=== PATIENT | male | born 1965 | race Caucasian/White ===

== ENCOUNTER 2023-01-30 09:15 | Emergency (ER) | payer OTHER, SELFPAY ==
[2023-01-30] VITALS (21 sets, daily range): BP systolic 114–142; BP diastolic 85–98; PULSE 72–92; RESP 14–27; TEMP 36.6–36.7; O2SAT 95–98
--- NOTE | ~2023-01-30 | XR_ITS ---
XR chest 1V portable DATE: 01/30/2023 11:45 INDICATION: Cough. Covid-positive. TECHNIQUE: Portable AP chest on 01/30/2023 at 1140 hours COMPARISON: None FINDINGS: Normal heart size. Aortic arch calcification. No hilar or mediastinal enlargement. No pulmo nary infiltrate or consolidation, pleural effusion or pulmonary vascular congestion or pneumothorax. IMPRESSION: No active cardiopulmonary disease Aortic atherosclerosis Reviewed, dictated and finalized at location B.
--- NOTE | 2023-01-30 09:48 | PC.NURSE ---
Addendum entered by Aguila Dominguez RN 01/30/23 09:52: States on Monday he was dealing with diarrhea which has resolved. Pt has also had two episodes of emesis when he attributes to a coughing a fit. Last emesis was last night after eating some chicken. Pt states he has not had much of an appetite. Pt is c/o nausea. Original Note: Denies SOB. States he is COVID positive. States his symptoms have been starting since Saturday 01/27 Pt has been c/o body aches, headache, fever, and a cough. Pt states he called his PCP and was directed to come to the ER due to his symptoms. Pt states he last took tylenol at 0300 early this morning to break the fever.
[2023-01-30 10:19] LABS: Basophils Percent Auto 0.4 % (0.2-1.2); Eosinophils Absolute Auto 0.1 K/mm3 (0-0.3); Eosinophils Percent Auto 2.5 % (0-4.4); Hematocrit 48.6 % (42.0-52.0); Hemoglobin 16.1 g/dL (14.0-18.0); Immature Granulocyte Absolute 0.01 K/mm3 (0.00-0.031); Immature Granulocyte Percent A 0.2 % (0-0.5); Lymphocytes Absolute Auto 0.72 K/mm3 (0.9-3.2); Lymphocytes Percent Auto 12.9 % (18.3-44.2); Mean Corpuscular HGB Conc 33.1 g/dl (32-36); Mean Corpuscular Hemoglobin 30.1 pg (26-34); Mean Corpuscular Volume 90.8 fl (80-100); Monocytes Absolute Auto 0.6 K/mm3 (0.1-0.6); Monocytes Percent Auto 11.5 % (2.6-8.5); Neutrophils Absolute Auto 4.1 K/mm3 (1.3-6.7); Neutrophils Percent Auto 72.5 % (45.5-73.1); Platelet Count Result 234 k/mm3 (150-375); Red Blood Count 5.35 M/mm3 (4.6-6.20); Red Cell Distribution Width 12.8 % (11.5-14.5); White Blood Count 5.6 K/mm3 (4.5-10.0)
[2023-01-30 10:22] LABS: Influenza A QL RT-PCR Negative (Negative); Influenza B QL RT-PCR Negative (Negative); RSV RNA, RT-PCR Negative (Negative); SARS-CoV-2 RNA PCR Positive
[2023-01-30 10:24] LABS: Alanine Aminotransferase 51 U/L (6-50); Albumin Level 4.6 g/dL (3.5-5.1); Alkaline Phosphatase 77 U/L (38-126); Anion Gap 9 mmol/L (8-16); Aspartate Amino Transferase 60 U/L (17-59); Bilirubin,Total 0.8 mg/dL (0.2-1.3); Blood Urea Nitrogen 15 mg/dL (9-20); Calcium 9.1 mg/dL (8.4-10.2); Carbon Dioxide 30 mmol/L (22-30); Chloride 97 mmol/L (98-107); Estimated Glomerular Filt Rate > 60; Glucose 156 mg/dL (65-110); Lipase 61 U/L (23-300); Potassium 3.7 mmol/L (3.4-5.0); Sodium 136 mmol/L (137-145)
[2023-01-30 10:46] LABS: Appearance Urine Cloudy (Clear); Bacteria Urine None Seen /hpf; Bilirubin Urine 1+ (Negative); Blood Urine Negative (Negative); Color Urine Dark Yellow (Yellow); Glucose Urine UA Negative (Negative); Hyaline Casts Urine Present /lpf; Ketones Urine 1+ mg/dL (Negative); Leukocyte Esterase Ur Negative LEU/UL (Negative); Mucus Urine Present /lpf; Nitrate Urine Negative (Negative); Non Pathogenic Casts >20; Protein Urine 2+ mg/dL (Negative); RBC Urine 0-2 /hpf (0-2); Specific Grav Ur 1.031 (1.001-1.035); Squamous Epithelial Cell Urine Few /hpf (Few); WBC Urine 0-5 /hpf; pH Urine 5.5 (5.0-9.0)
[2023-01-30 10:54] LABS: Add Urine Microscopic? YES
--- NOTE | 2023-01-30 11:31 | ED.HA ---
HPI - Headache General Chief Complaint: Headache Stated Complaint: covid Time Seen by Provider: 01/30/23 11:04 Source: patient Mode of arrival: ambulatory Limitations: no limitations History of Present Illness HPI Narrative: Patient is a 57-year-old male who presents to the ED with multiple complaints. Patient reports he began feeling unwell on Monday night with cough, congestion, headache, body aches, nausea, vomiting, diarrhea, lower abdominal pain, fevers, chills, sore throat. He took an at home COVID test which was positive. He states he did not trust the test and went to [facility] where he also tested positive again. Patient states he is not feeling any better and wants Paxlovid. Patient is vaccinated but not boosted. He has been taking Sudafed, NyQuil, Tylenol at home. Denies chest pain, difficulty breathing, pleuritic pain, hemoptysis. Related Data Allergies Allergy/AdvReac Type Severity Reaction Status Date / Time No Known Allergies Allergy Unknown Verified 01/06/12 06:55 Review of Systems Review of Systems: CONSTITUTIONAL: See HPI. ENT: See HPI. CARDIOVASCULAR: Denies chest pain, palpitations, or edema. RESPIRATORY: See HPI. GASTROINTESTINAL: See HPI. GENITOURINARY: Denies dysuria or hematuria. SKIN: Denies rash or itching. MUSCULOSKELETAL: See HPI. NEUROLOGIC: See HPI. All systems reviewed & are unremarkable except as noted in HPI and below PMFSH Past Medical History Medical History (Updated 01/30/23 @ 12:26 by Michelle Whittington PA-C) GERD (gastroesophageal reflux disease) HLD (hyperlipidemia) HTN (hypertension) Surgical History Surgical History (Updated 01/30/23 @ 12:17 by Michelle Whittington PA-C) No pertinent past surgical history Social History Social History (Updated 01/30/23 @ 12:17 by Michelle Whittington PA-C) Smoking status: Never smoker Exam Narrative: GENERAL: Well appearing, well-nourished, non-toxic, in no acute distress. HEAD: Normocephalic, atraumatic. NECK: Supple. No adenopathy, no masses. RESPIRATORY: Airway patent, respirations nonlabored. Clear to auscultation bilaterally, no rales, rhonchi, wheezing. No focal lung sounds. No pleuritic pain reported. CARDIOVASCULAR: Regular rate and rhythm without murmurs, rubs, or gallops. Radial pulses 2+ and equal bilaterally. ABDOMINAL: Soft, no appreciable tenderness to palpation throughout abdomen, nondistended, no hepatosplenomegaly. Normoactive BS. MUSCULOSKELETAL: Moves all extremities. Strength/ROM intact without gross deformities. SKIN: Warm, dry, normal color. No rashes. NEURO: A&O X3. Speech clear. Cranial nerves II-XII grossly intact. Steady gait. No ataxic movements. PSYCHIATRIC: Appropriate mood and affect. Normal interaction. Course Vital Signs Vital signs: Vital Signs Temperature 98.0 F 01/30/23 09:23 Pulse Rate 90 01/30/23 09:23 Respiratory Rate 16 01/30/23 09:23 Blood Pressure 142/98 H 01/30/23 09:23 Pulse Oximetry 98 01/30/23 09:23 Oxygen Delivery Room Air 01/30/23 09:23 Temperature 98 F 01/30/23 09:57 Pulse Rate 72 01/30/23 12:17 Respiratory Rate 16 01/30/23 12:17 Blood Pressure 136/93 H 01/30/23 11:46 Pulse Oximetry 95 01/30/23 09:57 Oxygen Delivery Room Air 01/30/23 09:51 MDM - Headache MDM Narrative Medical decision making narrative: Patient with multiple viral type symptoms X 3d, tested positive for COVID-19 at home. Concerned that he is not feeling better. Vital stable upon arrival. Patient afebrile. No hypoxia, tachycardia, tachypnea. Patient denying chest pain or shortness of breath. COVID PCR testing again positive here. CBC without significant abnormalities. CMP with stable electrolytes, stable kidney function, minimal elevation of liver enzymes. Urine with ketones, no signs of infection. Chest x-ray unremarkable. No focal consolidation. Patient given fluids, Tylenol, Zofran in the ED. He will be discharged at this time and advised to
[2023-01-30] MEDS: ONDANSETRON INJ 4 MG/2 ML VIAL IV PUSH (11:38)
[2023-01-30] MEDS: SODIUM CHLORIDE 0.9% IV 1,000 ML 999 ML IV CONT (11:38)
== END 2023-01-30 12:44 | disposition home or self-care (01) ==
PROVIDERS: Emergency Medicine; Emergency Provider Physician Assistant
DX: U07.1 COVID-19 (principal); R74.01 Elevation of levels of liver transaminase levels; R11.2 Nausea with vomiting, unspecified; E78.5 Hyperlipidemia, unspecified; I10 Essential (primary) hypertension; K21.9 Gastro-esophageal reflux disease without esophagitis
CPT/HCPCS: 36415; 71045; 80053; 81001; 83690; 85025; 87637; 96361; 96365; 96375; 99284; J0131; J2405; J7030

== ENCOUNTER 2023-10-02 09:01 | Outpatient (CLI) | payer OTHER, SELFPAY ==
--- NOTE | 2023-10-02 09:16 | ECG_ITS ---
Measurements Intervals [place] Rate: 54 P: 20 NM: 229 QRS: -27 QRSD: 93 T: 157 QT: 432 QTc: 411 Interpretive Statements SINUS BRADYCARDIA WITH FIRST DEGREE AV BLOCK DELAYED PRECORDIAL R/S TRANSITION LEFT VENTRICULAR HYPERTROPHY AND ST-T CHANGE ST-T WAVE ABNORMALITY IN ANTEROLATERAL LEADS- CONSIDER ISCHEMIA BASELINE ARTIFACT- I, II, AVR, AVL, AVF, V2 ABNORMAL ECG NO PREVIOUS ECG AVAILABLE FOR COMPARISON Electronically Signed On 10-02-2023 9:40:34 LARGE ANIMAL HUSBANDRY TECHNICIAN by Jose Luna D.O.
== END 2023-10-02 09:02 | disposition home or self-care (01) ==
LOC: ANHSURGERY 09:07
PROVIDERS: Visit Provider Surgery
DX: I10 Essential (primary) hypertension (principal); K40.90 Unilateral inguinal hernia, without obstruction or gangrene, not specified as recurrent; Z01.818 Encounter for other preprocedural examination
CPT/HCPCS: 36415; 86850; 86900; 86901; 93005

== ENCOUNTER 2023-10-06 00:39 | Day surgery (SDC) | payer OTHER, SELFPAY ==
--- NOTE | 2023-09-26 14:35 | SUR.PREOP ---
Report to the Outpatient Waiting Room, entrance under the green pavilion located off [facility], at time 0930 on date 10/06/23. Planned Procedure Time: 1130. Time changes happen often and if your time is changed the preop area will call you the afternoon before. - You and your visitor will be asked to self-screen and do not enter if you have any COVID symptoms. - A mask is optional within the hospital at this time. Patients may have clear liquids (water, carbonated beverages, clear teas, apple juice) until 3 hours prior to surgery with a maximum of 20 ounces. - NO CLEAR LIQUIDS AFTER 0830 - No food from midnight until time of surgery - Infants may have breast milk until 4 hours before surgery, formula 6 hours prior to surgery. - Children will be allowed to drink immediately following surgery. If applicable, please bring a bottle or sippy cup to assist with drinking. Juice, water, soda, and popsicles are readily available. For infants on formula, please bring formula the day of surgery. Pacifiers are allowed. Take the following medications with a SIP of water the morning of surgery: N/A DO NOT STOP ANY OF YOUR OTHER PRESCRIPTION MEDICATIONS PRIOR TO SURGERY ?EXCEPT THE FOLLOWING Medications to discontinue per physician N/A Date to take last dose Please no make-up, nail belarusian, hairspray, perfume, deodorant, or body powder the day of surgery. No jewelry (including any body piercings) or valuables the day of surgery, leave them at home. Please take a shower or bath the night before, or the morning of, surgery with an antibacterial soap. Wear comfortable, loose fitting clothing. Children are encouraged to wear pajamas. - Jewelry must be removed prior to entering the operating room. Rings and piercings that are not removed may be cut off. - The hospital will not accept responsibility for valuables. - Please leave all valuables, including medications, at home the day of surgery. If you are going home after surgery, a licensed route salesman and driver must drive you home. - NO public transportation without another adult if you receive anesthesia. - We recommend that an adult stay with you for 24 hours following discharge. - We also recommend that you do not drive, make important decision, drink alcoholic beverages, or take any drugs that were not prescribed by your health care provider for at least 24 hours after your discharge time. For Pediatric surgeries, we recommend two adults accompany the child home. Follow any additional instructions given to you from your surgeon. If you or anyone in your household have experienced Covid symptoms in the past week, please notify your surgeon or the nurse liaison at the phone number below for possible testing. Telephone instructions given to TRESA GARCÍA and asked if any additional questions and then verbalized understanding. Patient advised to call surgeon office or pre surgery nurse liaison [phone] if any additional questions.
[2023-09-26 14:49] VITALS: BMI 25.9
--- NOTE | 2023-10-02 16:43 | PM.SD2 ---
Same Day Admit/Disch: HPI History of Present Illness Chief complaint: Lt Ing Hernia Narrative: Daren Prabhakar is a 57 year old male who had previous right inguinal hernia repair x2 in the . He started noticing a left groin bulge last March. This was only occasionally painful but did seem to be enlarging. He was seen by a primary care provider at [facility] who ordered a CT scan. The CT scan showed a fat containing left inguinal hernia as well as a recurrent right inguinal hernia containing nonobstructed bowel. Patient has had no complaints or problems associated with the right side. He denies any problems with urination or bowel movement. He was seen in the office in August and found to have only a large left inguinal hernia and no right inguinal hernia. After discussion, he is taken to surgery at this time for robotic laparoscopic left inguinal hernia repair with mesh. [facility] Past Medical History Medical History GERD (gastroesophageal reflux disease) HLD (hyperlipidemia) HTN (hypertension) Surgical History Surgical History History of right inguinal hernia repair Social History Social History Smoking status: Never smoker Living arrangements: with family Spiritual care concerns: No Same Day Admit/Disch: Med Pre-admit Medications Home Medications Medication Instructions Recorded Confirmed Type amlodipine 2.5 mg tablet 2.5 mg PO HS 09/26/23 09/26/23 History omeprazole 20 mg capsule,delayed 20 mg PO HS 09/26/23 09/26/23 History release rosuvastatin 20 mg tablet (Crestor) 20 mg PO HS 09/26/23 09/26/23 History ketorolac 10 mg tablet 10 mg PO Q6H 4 days #16 tabs 10/06/23 Rx oxycodone-acetaminophen 5 mg-325 0.5 - 1 tablet PO Q6H PRN pain #10 10/06/23 Rx mg tablet tabs Review of Systems Review of Systems All systems reviewed & are unremarkable except as noted in HPI and below (HPI and those items noted below) Constitutional Constitutional: Denies chills and Denies fever(s) Cardiovascular Cardiovascular: Denies chest pain, Denies diaphoresis, Denies dyspnea and Denies paroxysmal nocturnal dyspnea Respiratory Respiratory: Denies chest congestion, Denies cough and Denies dyspnea Integumentary/Breasts Skin/Breast: Denies lesions and Denies rash Exam Const: General: comfortable, no acute distress, alert and awake HENMT: Head: normocephalic and atraumatic Mouth: Yes Normal oral and palatal mucosa present Eyes: Conjunctivae: conjunctivae normal Pupils: Equal, round and reactive pupils present EOM: EOMs intact bilaterally Neck: Neck: normal visual inspection, no lymphadenopathy and nontender Resp: Effort & Inspection: normal respiratory effort Auscultation: clear to auscultation bilaterally Cardio: Rate: regular rate Rhythm: regular rhythm Heart sounds: no gallops, no murmurs and no rubs GI: Inspection: non-distended GI Palp: Yes Soft to palpation, No Tenderness to palpation present (GI), No Hepatomegaly present and No Splenomegaly present : Male General Exam: No erythema, Yes hernia (Large reducible left inguinal hernia, no right inguinal hernia) and No tenderness Penis: Yes normal penis Scrotum: scrotum normal Testes: Testes normal Skin: Lesions: no lesions Rashes: no rashes Neuro: General: no focal motor deficits and CN's II-XI intact bilaterally Cranial nerves: Yes Equal, round and reactive pupils present, Yes Bilaterally intact EOM present, Yes facial symmetry and Yes Midline tongue present Speech: normal speech Motor exam (neuro): 5/5 motor strength present throughout and Motor abnormalities not present Extrem: General: no clubbing, cyanosis or edema and edema Psych: Affect: normal affect Thought process: Normal thought process present Insight: Good insight present (Psych) DS: Summary Time Spent wi
[2023-10-06] VITALS (9 sets, daily range): BP systolic 141–150; BP diastolic 69–91; PULSE 56–76; RESP 14–21; TEMP 36.6; O2SAT 97–100; BMI 26.3
--- NOTE | 2023-10-06 07:39 | WPDHPUPDATE1 ---
History and Physical Update Update Date/Time: 10/06/23 07:39 History and Physical has been reviewed, including an updated exam of the patient. There are NO changes in the patient's condition. Risks, benefits, and alternatives have been discussed and questions answered. Patient agrees to proceed with procedure.
[2023-10-06] MEDS: KETOROLAC 15 MG/ML VIAL (*BKC) IV PUSH (09:42)
[2023-10-06] MEDS: ACETAMINOPHEN 500 MG TABLET 1000 MG PO (09:42)
--- NOTE | 2023-10-06 09:43 | WPDANESEPPF ---
Anes - Initial Pre Proc Eval Procedure: Operation Date: 10/06/23 11:00 Proposed Procedures p Robotic Laparoscopic Repair Left Inguinal Hernia with Mesh - Faizan Romero MD Date/Time: 10/06/23 09:43 Surgeon: Faizan Romero MD Pre Op Diagnosis: Lt Ing Hernia Patient Data Age: 57 Gender: M Height: 1.73 m Weight: 78.6 kg Allergies Allergy/AdvReac Type Severity Reaction Status Date / Time No Known Allergies Allergy Unknown Verified 10/06/23 09:12 Home Medications Medication Instructions Recorded Confirmed Type amlodipine 2.5 mg tablet 2.5 mg PO HS 09/26/23 09/26/23 History omeprazole 20 mg capsule,delayed 20 mg PO HS 09/26/23 09/26/23 History release rosuvastatin 20 mg tablet (Crestor) 20 mg PO HS 09/26/23 09/26/23 History Patient hx anesthesia problems: none Family hx anesthesia problems: none Results Review: All pre-operative results and documents have been reviewed as part of the pre-operative evaluation. [facility] Past Medical History Medical History GERD (gastroesophageal reflux disease) HLD (hyperlipidemia) HTN (hypertension) Surgical History Surgical History History of right inguinal hernia repair Social History Social History Smoking status: Never smoker Living arrangements: with family Spiritual care concerns: No Anes - Eval Final PreProcedure Day of Procedure 10/06/23 09:43 Patient weight: overweight Heart: regular rate and rhythm Lungs: clear to auscultation Airway: Mallampati scale class II Neurological: alert and oriented Last oral intake: >/= 8 hours ASA classification: III Emergent: no Anesthetic plan: proceed Anesthesia type and monitoring: general ETT and standard monitoring Results Review: All pre-operative results and documents have been reviewed as part of the pre-operative evaluation. Informed Consent: The patient's anesthetic plan and its attendant risks and benefits were discussed with the patient/family/POA. Questions were solicited and answers provided to the satisfaction of the patient/family/POA.
[2023-10-06] MEDS: LACTATED RINGERS 1,000 ML 30 ML IV CONT ×2 (09:46→13:14)
[2023-10-06] MEDS: ceFAZolin 2 GM/D5W 50 ML 2 GM/50 ML BAG IVPB (10:44)
[2023-10-06] MEDS: BUPIVACAINE/EPINEPHRINE 0.5% 50 ML VIAL INFILTRATE (11:18)
--- NOTE | 2023-10-06 13:36 | W.PM.PROC2 ---
Procedure Note - Detailed Date of Procedure 10/06/23 Pre-op Diagnosis Lt Ing Hernia Post-op Diagnosis Same Procedure Performed Robotic laparoscopic repair left inguinal hernia with mesh Surgeon Faizan Romero MD Ingredient Specialist Edgar RAPP Anesthesia General and Local (0.5% Marcaine with epinephrine) Indications Patient has had pain and an enlarging bulge in the left groin. He was seen in the office and found to have a fairly large left inguinal hernia. He has had a previous right inguinal hernia repaired x2 and no right inguinal hernia was noted. He is taken to surgery now for robotic laparoscopic repair of left inguinal hernia Findings This was a large indirect left inguinal hernia. The sigmoid colon was in the hernia and adhesed to hernia sac. Description of Procedure Patient was taken to surgery and placed in a supine position. He was induced into general anesthesia. The abdomen was prepped and draped. Three robotic trocars were placed across the mid upper abdomen in the usual fashion using a 5 mm optical trocar and then placing all the robotic trocars under direct visualization. Three 8 mm robotic trocars were used. Patient was placed in Trendelenburg. The robot was brought into the field and the robotic arms were docked. The camera was docked 1st and then targeted. The instrument ports were docked and instruments placed next. The surgeon then broke scrub and went to the robotic console. Left inguinal hernia was easy to see. I did pull on some of the sigmoid colon and saw that it was adherent to the hernia sac. I then went ahead and created a peritoneal flap across the anterior of the inguinal canal structures. The flap was developed both medially and laterally on each side of the large hernia. Medially we dissected across the midline and also dissected the bladder posteriorly. We dissected down to Isidro's ligament and the pubis. These were exposed. I then went to the right lateral side of the peritoneal flap and dissected the fat off the flap to leave it on to the abdominal wall as much as possible. Once this had been created to an adequate extent, I then turned my attention to the hernia. The hernia sac was very adherent to the depths of the hernia defect. I found a large lipoma just lateral to the hernia sac and I was able to place traction on this and find its end much more easily than the hernia sac. Using cautery and scissor dissection, I was able to dissect the lipoma away. I then continued working on the hernia sac. The sac was very tethered in the inguinal canal. I place traction on it and retracted to my left looking for and carefully dissecting the vas deferens and spermatic vessels from the sac. I also did some dissection or on the top of the sac to free up some of its adhesions. Another lipoma was found and was dissected away. This was smaller than the 1st. Continued dissection of the sac resulted in some venous oozing probably some vessels associated with lipomatous tissue of the cord. I was able to find and carefully preserved the vas deferens and spermatic vessels. Eventually I was able to dissect the hernia sac completely from the hernia defect. I then continued dissecting the peritoneum posteriorly so we had a wide area to place our mesh. I went back to the medial aspect and dissected across the midline and freed up retroperitoneal attachments over the right rectus muscle. Dissection of the pubis was carried out so that we had at least 2 cm posterior to the pubis to place the lower medial edge of our mesh. At this point, the hernia sac could been reduced and adequate dissection had been carried out to proceed with mesh placement. A 17 x 12 cm mid 3DMax mesh was then introduced into the abdominal cavity. A 3 0 V lock and 3-0 Vicryl suture were also introduced. Once the Juan cut needle livery car driver was placed, I proceeded to place the mesh over the hernia defect and positioned it appropriately. I used the 3-0 Vicryl to
[2023-10-06] MEDS: oxyCODONE HCL (*CRX) 5 MG TAB IR PO (14:18)
== END 2023-10-06 16:03 | disposition home or self-care (01) ==
PROVIDERS: Visit Provider Surgery
PROC: 8E0Y4CZ Robotic Assisted Procedure of Lower Extremity, Percutaneous Endoscopic Approach (ICD-10-PCS; CPT 49650; principal; 2023-10-06 11:00)
DX: K40.90 Unilateral inguinal hernia, without obstruction or gangrene, not specified as recurrent (principal); E78.5 Hyperlipidemia, unspecified; I10 Essential (primary) hypertension; K21.9 Gastro-esophageal reflux disease without esophagitis
CPT/HCPCS: 49650; S2900; A9270; C1781; J0690; J1100; J1885; J2250; J2405; J2704; J3010; J7120

== ENCOUNTER 2024-09-09 01:48 | Day surgery (SDC) | payer OTHER, SELFPAY ==
[2024-08-27 13:51] VITALS: BMI 26.8
[2024-09-09 07:41] VITALS: BP 139/82; PULSE 62; RESP 20; TEMP 36.1; O2SAT 99; BMI 25.0
[2024-09-09] MEDS: LACTATED RINGERS 1,000 ML 150 ML IV CONT (07:44)
--- NOTE | 2024-09-09 08:11 | P.PNAN_ITS ---
Anes - Initial Pre Proc Eval Procedure: Operation Date: 09/09/24 08:30 Proposed Procedures p Screening Colonoscopy - Jose Luis Barnhart MD Date/Time: 09/09/24 08:11 Surgeon: Jose Luis Barnhart MD Pre Op Diagnosis: Neoplasm screening Patient Data Age: 58 Gender: M Height: 1.73 m Weight: 74.7 kg Last Vital Signs Temp 36.1 C L 09/09/24 07:41 Pulse 62 09/09/24 07:41 Resp 20 09/09/24 07:41 BP 139/82 09/09/24 07:41 Pulse Ox 99 09/09/24 07:41 O2 Del Method Room Air 09/09/24 07:41 Allergies Allergy/AdvReac Type Severity Reaction Status Date / Time No Known Allergies Allergy Unknown Verified 09/09/24 07:40 Home Medications Medication Instructions Recorded Confirmed Type amlodipine 2.5 mg tablet 2.5 mg PO HS 09/26/23 09/09/24 History omeprazole 20 mg capsule,delayed 20 mg PO HS 09/26/23 09/09/24 History release rosuvastatin 20 mg tablet (Crestor) 20 mg PO HS 09/26/23 09/09/24 History multivitamin (Daily Multi-Vitamin 1 tablet PO DAILY 05/06/24 09/09/24 History tablet) Patient hx anesthesia problems: none Family hx anesthesia problems: none Results Review: All pre-operative results and documents have been reviewed as part of the pre- operative evaluation. [facility] Past Medical History Medical History GERD (gastroesophageal reflux disease) HLD (hyperlipidemia) HTN (hypertension) Surgical History Surgical History History of right inguinal hernia repair Hx of left inguinal hernia repair Robotic laparoscopic repair left inguinal hernia with mesh 10/06/23 [place] Social History Social History Smoking status: Never smoker Living arrangements: with family Spiritual care concerns: No Anes - Eval Final PreProcedure Day of Procedure 09/09/24 08:11 Patient weight: normal Heart: regular rate and rhythm Lungs: clear to auscultation Airway: Mallampati scale class II Neurological: alert and oriented Last oral intake: >/= 8 hours ASA classification: II Emergent: no Anesthetic plan: proceed Anesthesia type and monitoring: general GIVS and standard monitoring Results Review: All pre-operative results and documents have been reviewed as part of the pre- operative evaluation. Informed Consent: The patient's anesthetic plan and its attendant risks and benefits were discussed with the patient/family/POA. Questions were solicited and answers provided to the satisfaction of the patient/family/POA.
--- NOTE | 2024-09-09 08:19 | PM.HPGS ---
History of Present Illness History of Present Illness Consent: Risks, benefits, and alternatives have been discussed and questions answered. Patient agrees to proceed with procedure. Chief complaint: Neoplasm screening Narrative: Daren Prabhakar is a 58 year old male here for screening colonoscopy, last one about 7 years ago Review of Systems Review of Systems: All systems reviewed & are unremarkable except as noted in HPI and below PMFSH Past Medical History Medical History (Updated 09/09/24 @ 08:20 by Jose Luis Barnhart MD) Colon cancer screening GERD (gastroesophageal reflux disease) HLD (hyperlipidemia) HTN (hypertension) Surgical History Surgical History History of right inguinal hernia repair Hx of left inguinal hernia repair Robotic laparoscopic repair left inguinal hernia with mesh 10/06/23 [place] Social History Social History Smoking status: Never smoker Living arrangements: with family Spiritual care concerns: No Meds Home Medications and Allergies Home Medications Medication Instructions Recorded Confirmed Type amlodipine 2.5 mg tablet 2.5 mg PO HS 09/26/23 09/09/24 History omeprazole 20 mg capsule,delayed 20 mg PO HS 09/26/23 09/09/24 History release rosuvastatin 20 mg tablet (Crestor) 20 mg PO HS 09/26/23 09/09/24 History multivitamin (Daily Multi-Vitamin 1 tablet PO DAILY 05/06/24 09/09/24 History tablet) Allergies Allergy/AdvReac Type Severity Reaction Status Date / Time No Known Allergies Allergy Unknown Verified 09/09/24 07:40 Vital Signs Vital Signs - 24 hr 09/09/24 07:41 Temperature 97.0 F L Pulse Rate 62 Respiratory Rate 20 Blood Pressure 139/82 Pulse Oximetry 99 Oxygen Delivery Room Air Exam Const: General: comfortable and no acute distress HENMT: Face/Nose/Sinus: Normal nares present Eyes: General: appearance normal, both eyes and all related structures Neck: Neck: no JVD Resp: Auscultation: clear to auscultation bilaterally Cardio: Rate: regular rate Rhythm: regular rhythm GI: Inspection: non-distended GI Palp: Yes Soft to palpation Skin: General skin exam: normal color Neuro: General: gait normal Speech: normal speech Extrem: General: normal to inspection Psych: Mental Status: mental status grossly normal Assessment and Plan Assessment and plan (1) Colon cancer screening: Code(s): Z12.11 - Encounter for screening for malignant neoplasm of colon Status: Acute Assessment and Plan: colonoscopy
[2024-09-09 08:38] VITALS: BP 107/64; PULSE 67; RESP 14; O2SAT 97
[2024-09-09 08:48] VITALS: BP 105/71; PULSE 66; RESP 15; O2SAT 97
[2024-09-09 08:58] VITALS: BP 123/74; PULSE 54; RESP 15; O2SAT 100
== END 2024-09-09 09:11 | disposition home or self-care (01) ==
PROVIDERS: Visit Provider Internal Medicine Gastroenterology
PROC: 0DJD8ZZ Inspection of Lower Intestinal Tract, Via Natural or Artificial Opening Endoscopic (ICD-10-PCS; CPT 45378; principal; 2024-09-09 08:30)
DX: Z12.11 Encounter for screening for malignant neoplasm of colon (principal); K64.8 Other hemorrhoids; I10 Essential (primary) hypertension; E78.5 Hyperlipidemia, unspecified; K21.9 Gastro-esophageal reflux disease without esophagitis
CPT/HCPCS: 45378; J2704; J7120